=== PATIENT | male | born 1985 | race Asian ===

== ENCOUNTER 2024-04-05 14:41 | Emergency (ER) | payer SELFPAY ==
[2024-04-05 14:42] VITALS: BP 127/87
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
[2024-04-05 16:44] VITALS: BP 122/74
== END 2024-04-05 16:47 | disposition home or self-care (01) ==
LOC: EMR 14:41
PROVIDERS: EMERGENCY PHYSICIAN Emergency Medicine
DX: S63.501A Unspecified sprain of right wrist, initial encounter (principal); V89.2XXA Person injured in unspecified motor-vehicle accident, traffic, initial encounter
CPT/HCPCS: 99283; 29125; 73110